=== PATIENT | male | born 1955 | race Hispanic/Latino ===

== ENCOUNTER 2017-10-22 12:22 | Emergency (ER) | payer OTHER ==
[~2017-10-22] VITALS: Ht 167.6 cm; Wt 99.8 kg
[~2017-10-22 12:22] MED LIST: AMLODIPINE10 MG PO; FLEXERIL10 MG PO; IBU600 MG PO; SIMVASTATIN20 MG PO
[2017-10-22 13:30] LABS: ABSOLUTE BASOPHIL COUNT 0 /CUMM (0.0-0.2); ABSOLUTE EOSINOPHIL COUNT 0.3 /CUMM (0.0-0.7); ABSOLUTE LYMPH COUNT 2.3 /CUMM (1.2-3.4); BASOPHIL % 0.3 % (0.0-2.0); EOSINOPHIL % 2.8 % (0-5); GRANULOCYTE % 65.9 % (42.2-75.2); HEMATOCRIT 38.7 % (42-52); MEAN CORPUSCULAR HGB 31.7 PG (27.0-31.0); MEAN CORPUSCULAR HGB CONC 34.1 G/DL (33.0-37.0); MEAN CORPUSCULAR VOLUME 92.9 FL (80.0-94.0); MEAN PLATELET VOLUME 7.5 FL (7.4-10.4); PLATELET COUNT 232 /CUMM (130-400); RBC DISTRIBUTION WIDTH 13.5 % (11.5-14.5); RED BLOOD CELL CT 4.17 /CUMM (4.70-6.10); WHITE BLOOD CELL COUNT 10.6 /CUMM (4.8-10.8)
--- NOTE | 2017-10-22 14:24 | CT SCAN REPORT ---
EXAMINATION: CT ABDOMEN AND PELVIS WITHOUT CONTRAST CLINICAL INFORMATION: Right-sided flank pain. Rule out nephrolithiasis, hydronephrosis, including lumbar reconstructive views. COMPARISON: Screening chest CT scan dated 07/29/2016. PET CT scan dated 07/18/2015. TECHNIQUE: Multidetector volumetric imaging was performed from the superior aspect of the liver through the pubic symphysis. Sagittal and coronal reformatted images were obtained on the technologist workstation. At the referring provider's request, thin section sagittal and coronal reconstructions of the lumbosacral spine were also performed with bone algorithm. DLP: 575.15 mGy-cm. FINDINGS: LUNG BASES: There are diffuse groundglass and patchy parenchymal opacities seen in the included lung bases bilaterally, new from prior CT scan. Trace right-sided pleural effusion is seen. The cardiac silhouette is enlarged. Mild coronary artery calcifications are seen. LIVER, GALLBLADDER, AND BILIARY TREE: The liver is normal in size and shape and diffusely lower in attenuation compared to the spleen, consistent with hepatic steatosis. Geographic areas of focal fatty sparing are seen in the gallbladder fossa. No focal hepatic lesion on noncontrast imaging. No biliary ductal dilatation is present. The gallbladder is not well visualized and may be completely decompressed. No inflammatory changes as seen in the right upper quadrant. PANCREAS: Unremarkable on noncontrast imaging. SPLEEN, ADRENAL GLANDS: Unremarkable on noncontrast imaging. KIDNEYS AND URETERS: The kidneys are normal in size, shape, and attenuation. No hydronephrosis, hydroureter, or calculi seen. No perinephric stranding. There is an exophytic 1.4 cm diameter intermediate attenuation mass seen arising from the lower pole of the right kidney with attenuation values ranging between 19.3 and 32.7 Hounsfield units. This is not consistent with a simple cyst and may represent either a hemorrhagic/proteinaceous cyst or a solid neoplasm. In the interpolar region of the right kidney, a linear 0.4 x 0.2 cm calcification is seen, most likely vascular in etiology. Additional faint punctate 0.1 cm calcification is seen in the upper pole of the right kidney. No other definite renal calculi are noted. The ureters bilaterally are decompressed with no ureteral calculi seen. BLADDER: Unremarkable. PELVIC VISCERA: Unremarkable. GASTROINTESTINAL TRACT: The small and large bowel are unremarkable. The appendix is unremarkable. ABDOMINAL WALL: There is a moderate-sized umbilical hernia, measuring 5.5 x 4.5 x 5.3 cm, extending up to the overlying skin surface and containing only omental fat and vessels. There is abnormal density seen in the fat, extending from the transverse colon through the abdominal wall defect into the posterior hernia sac (series 2, image 50), suspicious for omental incarceration and inflammation or infarct no free fluid is seen. LYMPH NODES, VASCULAR: Mild atherosclerotic calcifications of the aorta and branch vessels, including the coronary arteries and origins of the renal arteries noted. Small subcentimeter sized inguinal, external iliac chain and distal para-aortic lymph nodes are noted. No abnormal adenopathy seen. OSSEOUS STRUCTURES: There is grade 1 anterolistheses of L3 on L4 due to bilateral L3 pars defects. Alignment of the lumbar spine is otherwise unremarkable. There is severe degenerative disc disease at the L3-L4 level with near complete loss of the disc space height and prominent vertebral endplate sclerosis and spurring seen. Associated facet arthropathy is also noted. Bilateral spurring at this L3-L4 level project into the neural foramina, likely causing neural foraminal stenosis. There are also bilateral pars defects seen at the L5 level without significant anterolistheses seen. These findings are all unchanged compared to the prior PET/CT scan from 07/18/2015. IMPRESSION: 1. Moderate-sized umbilical hernia, containing omentum/omental fat only. Findings are suspicious for omental incarceration and inflammation or infarct given the abnormal density associated with the posterior portions of the hernia sac, extending into the anterior transverse mesocolon region. 2. Diffuse groundglass and patchy parenchymal opacity seen in the lung bases bilaterally, raising the suspicion of diffuse pneumonitis. Pulmonary edema or underexpansion of the lungs could produce a similar appearance. Clinical correlation is requested. 3. Trace right-sided pleural effusion. 4. Indeterminate lower pole right renal mass. This may represent a hemorrhagic/proteinaceous cyst versus a solid mass. Further evaluation with renal MRI scan with and without contrast is recommended. 5. Diffuse hepatic steatosis. 6. Gallbladder not well visualized and likely completely decompressed. 7. 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 Findings are similar to the prior PET/CT scan.
--- NOTE | 2017-10-22 15:07 | ED NECK/BACK PAIN COMPLAINT ---
History of Present Illness General Chief Complaint: Low Back Pain/Injury Stated Complaint: LBP Source: patient Exam Limitations: no limitations Vital Signs & Intake/Output Vital Signs & Intake/Output Vital Signs Date Time Temp Pulse Resp B/P B/P Pulse O2 O2 Flow FiO2 Mean Ox Delivery Rate 10/22 1601 76 122/68 10/22 1242 97.4 89 20 112/72 98 Room Air Allergies Coded Allergies: NO KNOWN ALLERGIES (07/06/15) Reconcile Medications Amlodipine Besylate (Amlodipine) 10 MG TAB 1 TAB PO DAILY HTN (Reported) Cyclobenzaprine HCl 5 MG TABLET 1 TAB PO TIDPRN muscle strain you may take one tab in the morning and two tabs at night before bed CYCLOBENZAPRINE HCL (Flexeril) 10 MG TAB 1 TAB PO TID MUSCLE RELAXATION Ibuprofen (Ibu) 600 MG TAB 1 TAB PO TID PAIN/INFLAMMATION Simvastatin (Zocor) 20 MG TAB 1 TAB PO QPM CHOLESTEROL (Reported) Triage Note: PT TO ED C/O RIGHT FLANK/RIGHT LOW BACK PAIN X 3 DAYS. DENIES OBVIOUS INJURY. PT TRIED TRAMADOL WITH SOME RELIEF. H/O CHRONIC BACK PAIN, STATES THIS PAIN IS WORSE. DENIES S/S. Triage Nurses Notes Reviewed? yes Onset: Gradual Duration: day(s): Timing: recent history Quality/Severity: severe Location: right flank HPI: 62-year-old male with history of hypertension, chronic back pain presents to emergency department complaining of right flank pain for the past 3 days. Describes pain is severe, constant, worse with movement. There was no trauma or injury prior to onset of symptoms. Patient states that this pain feels different than his chronic back pain. Patient takes tramadol as prescribed by his painter decorator which has not been relieving his symptoms. Patient denies abdominal pain, vomiting, fevers, chills, diarrhea, constipation, dysuria, hematuria. (Tanesha Anderson) Past History Travel History Traveled to [place] past 21 day No Medical History Any Pertinent Medical History? see below for history Cardiovascular: hypertension, hyperlipidemia Musculoskeletal: chronic back pain Surgical History Surgical History: non-contributory Psychosocial History What is your primary language Sinhala Tobacco Use: Current Daily Use Daily Tobacco Use Amount/Type: => 5 Cigarettes daily ETOH Use: denies use Illicit Drug Use: denies illicit drug use Family History Hx Contributory? No (Tanesha Anderson) Review of Systems Review of Systems Constitutional: Reports: no symptoms. Eyes: Reports: no symptoms. Ears, Nose, Throat, Mouth: Reports: no symptoms. Respiratory: Reports: no symptoms. Cardiovascular: Reports: no symptoms. Gastrointestinal/Abdominal: Reports: no symptoms. Musculoskeletal: Reports: see HPI. Skin: Reports: no symptoms. Neurological/Psychological: Reports: no symptoms. All Other Systems: Reviewed and Negative (Tanesha Anderson) Physical Exam Physical Exam General Appearance: well developed/nourished, no apparent distress, alert, awake Head: atraumatic, normal appearance Eyes: Bilateral: normal appearance. Ears, Nose, Throat, Mouth: hearing grossly normal Neck: normal inspection, supple, full range of motion Respiratory: no respiratory distress, mildly dimished breath sounds bilateral lung bases Cardiovascular: regular rate/rhythm Gastrointestinal: normal bowel sounds, soft, non-tender, no organomegaly, umbilical hernia is nontender, no skin changes Back: normal inspection, normal range of motion, right sided flank tenderness Extremities: non-tender Neurologic/Psych: awake, alert, oriented x 3 Skin: intact, normal color, warm/dry Core Measures CVA/TIA Diagnosis: No (Tanesha Anderson) Progress Differential Diagnosis: herniated disc, myofascial strain, pyelo/UTI, T/L spine injury, malignancy Plan of Care: Orders Procedure Date/time Status URINALYSIS 10/22 1243 Complete COMPREHENSIVE METABOLIC PANEL 10/22 1243 Complete CBC WITHOUT DIFFERENTIAL 10/22 1243 Complete Current Medications Sig/Gurpreet Start time Last Medication Dose Stop Time Status Admin Ketorolac 30 MG ONCE ONE 10/22 1345 CAN Tromethamine 10/22 1346 (Toradol) Laboratory Tests 10/22/17 1345: Urinalysis LIGHT H, Urine Color YEL, Urine Clarity CLEAR, Urine pH 6.0, Ur Specific [place] 1.025, Urine Protein 100 H, Urine Ketones NEG, Urine Nitrite NEG, Urine Bilirubin NEG, Urine Urobilinogen 0.2, Ur Leukocyte Esterase NEG, Ur Microscopic SEDIMENT EXAMINED, Urine RBC 1-3, Urine WBC RARE, Urine Bacteria FEW H, Hyaline Casts RARE H, Urine Mucus MANY H, Urine Hemoglobin NEG, Urine Glucose NEG 10/22/17 1255: Anion Gap 13, Estimated GFR 41 L, BUN/Creatinine Ratio 16.5, Glucose 101 H, Calcium 9.1, Total Bilirubin 0.7, AST 22, ALT 41, Alkaline Phosphatase 69, Total Protein 7.1, Albumin 3.8, Globulin 3.3, Albumin/Globulin Ratio 1.2, CBC w Diff NO MAN DIFF REQ, RBC 4.17 L, MCV 92.9, MCH 31.7 H, MCHC 34.1, RDW 13.5, MPV 7.5, Gran % 65.9, Lymphocytes % 21.2, Monocytes % 9.8 H, Eosinophils % 2.8, Basophils % 0.3, Absolute Granulocytes 7.0 H, Absolute Lymphocytes 2.3, Absolute Monocytes 1.0 H, Absolute Eosinophils 0.3, Absolute Basophils 0 Patient reports history of umbilical hernia for which she has seen Dr. Lopez foreign the past. He has no significant tenderness at umbilical hernia site, there is a low suspicion for acute incarcerated hernia in this patient given his presentation. Patient also reports a history of lung disease, he was primarily seen by cardiothoracic surgeon Dr. Klein. He states that they discussed possible lobectomy in the past however patient lost insurance and could not go through with procedure at that time. Patient's CT findings of pneumonitis are likely related to his chronic lung disease. Based on CT findings I recommended that the patient follow up with both Dr. Lopez and Dr. Klein. 3:42 PM - spoke with Dr. Crow regarding this patient's CT scan findings. He does not believe that the CT scan findings of renal mass explain the patient' s current flank pain. He does agree that she will require further workup such as MRI or CT imaging with IV contrast. He states he'll follow-up with the patient in his office regarding today's CT scan findings. CT findings with the patient including renal mass and necessity to follow-up with Dr. Crow for further evaulation. The patient was seen sleeping in stretcher while waiting for his results. He is in no acute distress, vital signs are stable. The patient agrees with the plan of care. He was given strict return precautions. Diagnostic Imaging: Viewed by Me: CT Scan. Discussed w/RAD: CT Scan. Radiology Impression: PATIENT: JORGE MONAHAN PRESENT AGE: 62 PATIENT ACCOUNT NO: [id number] : 55 LOCATION: [facility] ORDERING PHYSICIAN: Tanesha BAUTISTA SERVICE DATE: 10/22/17 EXAM TYPE: CAT - CT ABD & PELVIS W/O IV CONTRAS EXAMINATION: CT ABDOMEN AND PELVIS WITHOUT CONTRAST CLINICAL INFORMATION: Right-sided flank pain. Rule out nephrolithiasis, hydronephrosis, including lumbar reconstructive views. COMPARISON: Screening chest CT scan dated 07/29/2016. PET CT scan dated 07/18/2015. TECHNIQUE: Multidetector volumetric imaging was performed from the superior aspect of the liver through the pubic symphysis. Sagittal and coronal reformatted images were obtained on the technologist workstation. At the referring provider's request, thin section sagittal and coronal reconstructions of the lumbosacral spine were also performed with bone algorithm. DLP: 575.15 mGy-cm. FINDINGS: LUNG BASES: There are diffuse groundglass and patchy parenchymal opacities seen in the included lung bases bilaterally, new from prior CT scan. Trace right-sided pleural effusion is seen. The cardiac silhouette is enlarged. Mild coronary artery calcifications are seen. LIVER, GALLBLADDER, AND BILIARY TREE: The liver is normal in size and shape and diffusely lower in attenuation compared to the spleen, consistent with hepatic steatosis. Geographic areas of focal fatty sparing are seen in the gallbladder fossa. No focal hepatic lesion on noncontrast imaging. No biliary ductal dilatation is present. The gallbladder is not well visualized and may be completely decompressed. No inflammatory changes as seen in the right upper quadrant. PANCREAS: Unremarkable on noncontrast imaging. SPLEEN, ADRENAL GLANDS: Unremarkable on noncontrast imaging. KIDNEYS AND URETERS: The kidneys are normal in size, shape, and attenuation. No hydronephrosis, hydroureter, or calculi seen. No perinephric stranding. There is an exophytic 1.4 cm diameter intermediate attenuation mass seen arising from the lower pole of the right kidney with attenuation values ranging between 19.3 and 32.7 Hounsfield units. This is not consistent with a simple cyst and may represent either a hemorrhagic/proteinaceous cyst or a solid neoplasm. In the interpolar region of the right kidney, a linear 0.4 x 0.2 cm calcification is seen, most likely vascular in etiology. Additional faint punctate 0.1 cm calcification is seen in the upper pole of the right kidney. No other definite renal calculi are noted. The ureters bilaterally are decompressed with no ureteral calculi seen. BLADDER: Unremarkable. PELVIC VISCERA: Unremarkable. GASTROINTESTINAL TRACT: The small and large bowel are unremarkable. The appendix is unremarkable. ABDOMINAL WALL: There is a moderate-sized umbilical hernia, measuring 5.5 x 4.5 x 5.3 cm, extending up to the overlying skin surface and containing only omental fat and vessels. There is abnormal density seen in the fat, extending from the transverse colon through the abdominal wall defect into the posterior hernia sac (series 2, image 50), suspicious for omental incarceration and inflammation or infarct no free fluid is seen. LYMPH NODES, VASCULAR: Mild atherosclerotic calcifications of the aorta and branch vessels, including the coronary arteries and origins of the renal arteries noted. Small subcentimeter sized inguinal, external iliac chain and distal para-aortic lymph nodes are noted. No abnormal adenopathy seen. OSSEOUS STRUCTURES: There is grade 1 anterolistheses of L3 on L4 due to bilateral L3 pars defects. Alignment of the lumbar spine is otherwise unremarkable. There is severe degenerative disc disease at the L3-L4 level with near complete loss of the disc space height and prominent vertebral endplate sclerosis and spurring seen. Associated facet arthropathy is also noted. Bilateral spurring at this L3-L4 level project into the neural foramina, likely causing neural foraminal stenosis. There are also bilateral pars defects seen at the L5 level without significant anterolistheses seen. These findings are all unchanged compared to the prior PET/CT scan from . IMPRESSION: 1. Moderate-sized umbilical hernia, containing omentum/ omental fat only. Findings are suspicious for omental incarceration and inflammation or infarct given the abnormal density associated with the posterior portions of the hernia sac, extending into the anterior transverse mesocolon region. 2. Diffuse groundglass and patchy parenchymal opacity seen in the lung bases bilaterally, raising the suspicion of diffuse pneumonitis. Pulmonary edema or underexpansion of the lungs could produce a similar appearance. Clinical correlation is requested. 3. Trace right-sided pleural effusion. 4. Indeterminate lower pole right renal mass. This may represent a hemorrhagic/ proteinaceous cyst versus a solid mass. Further evaluation with renal MRI scan with and without contrast is recommended. 5. Diffuse hepatic steatosis. 6. Gallbladder not well visualized and likely completely decompressed. 7. 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 Findings are similar to the prior PET/CT scan. DICTATED BY: April Dow MD DATE/TIME DICTATED:10/22/171347 GRAIN COMMODITY MANAGER:JAYCOB DATE/TIME TRANSCRIBED:1347 CONFIDENTIAL, DO NOT COPY WITHOUT APPROPRIATE AUTHORIZATION. < Electronically signed in Other Vendor System> SIGNED BY: April Dow MD 10/22/17 1424 (Tanesha Anderson) Departure Departure Disposition: HOME OR SELF CARE Condition: Stable Clinical Impression Primary Impression: Flank pain Secondary Impressions: Pneumonitis, Renal mass, Umbilical hernia Referrals: Mignon DUNHAM,Alex Stearns MD,Walter (PCP/Family) Additional Instructions: Continue your tramadol as prescribed for pain. Follow-up with Dr. Crow, call the office to make an appointment for follow-up for further imaging studies. Return if worsening symptoms or concerns. Please note that there might be incidental findings in your evaluation that are unrelated to the current emergency department visit. Please notify your primary care doctor about this emergency department visit in order to obtain and review all of the testing performed so that these incidental findings can be monitored as needed. If you had an x-ray performed, please understand that some fractures may not be seen on the initial set of x-rays. If your symptoms persist you might need a repeat set of x-rays to check for such a fracture. If you had a laceration evaluated, please understand that foreign bodies such as glass or wood may not be visible to the naked eye or on plain x-rays. If the wound becomes red, swollen, increasingly more painful or if there is any drainage from the wound, please have it reevaluated by a physician for the possibility of a retained foreign body. If you're unable to follow up as outlined in the discharge instructions please return to the emergency department. Thank you for choosing the [facility] Emergency Department for your care. It was a pleasure to serve you today. Departure Forms: Customer Survey General Discharge Information Prescriptions: Current Visit Scripts Cyclobenzaprine HCl 1 TAB PO TIDPRN #21 TAB you may take one tab in the morning and two tabs at night before bed (Tanesha Anderson) PA/BIOINFORMATICS SOFTWARE ENGINEER Co-Sign Statement Statement: ED Attending supervision documentation- [] I saw and evaluated the patient. I have also reviewed all the pertinent lab results and diagnostic results. I agree with the findings and the plan of care as documented in the PA's/BIOINFORMATICS SOFTWARE ENGINEER's documentation. [x] I have reviewed the ED Record and agree with the PA's/BIOINFORMATICS SOFTWARE ENGINEER's documentation. [] Additions or exceptions (if any) to the PAs/BIOINFORMATICS SOFTWARE ENGINEER's note and plan are summarized below: [] (Pino Ang DO)
--- NOTE | 2017-10-22 15:48 | History & Physical ---
General Information and HPI Allergies/Medications Allergies: Coded Allergies: NO KNOWN ALLERGIES (07/06/15) Home Med list Amlodipine Besylate (Amlodipine) 10 MG TAB 1 TAB PO DAILY HTN (Reported) Cyclobenzaprine HCl 5 MG TABLET 1 TAB PO TIDPRN muscle strain you may take one tab in the morning and two tabs at night before bed CYCLOBENZAPRINE HCL (Flexeril) 10 MG TAB 1 TAB PO TID MUSCLE RELAXATION Ibuprofen (Ibu) 600 MG TAB 1 TAB PO TID PAIN/INFLAMMATION Simvastatin (Zocor) 20 MG TAB 1 TAB PO QPM CHOLESTEROL (Reported) Past History Travel History Traveled to [place] past 21 day No Medical History Cardiovascular: hypertension, hyperlipidemia Musculoskeletal: chronic back pain Past Family/Social History Psychosocial History ETOH Use: denies use Illicit Drug Use: denies illicit drug use Core Measures/Misc (12/22) Sepsis (View protocol) If YES complete Sepsis Event Note If YES complete Sepsis Event Note
[2017-10-22] MEDS ORDERED: CYCLOBENZAPRINE5 M2 PO (15:58)
[2017-10-22 16:01] VITALS: BP 122/68
== END 2017-10-22 16:02 ==
LOC: ERH 12:22
PROVIDERS: Physician Assistant
DX: J18.9 Pneumonia, unspecified organism (principal); K42.9 Umbilical hernia without obstruction or gangrene; N28.89 Other specified disorders of kidney and ureter; F17.210 Nicotine dependence, cigarettes, uncomplicated
CPT/HCPCS: 74176; 81001; 96372; J1885